=== PATIENT | female | born 1950 | race Caucasian/White ===

== ENCOUNTER 2020-05-28 12:35 | Outpatient (CLI) | payer MEDICARE, SELFPAY ==
--- NOTE | ~2020-05-28 | DEXA_ITS ---
BMD(1) Young-Adult(2) Age-Matched(3) Region (g/cm2) T-score Z-score WHO Classification L1 1.187 0.4 1.7 Normal L2 1.207 0.0 1.3 Normal L3 1.184 -0.3 1.1 Normal L4 1.239 0.2 1.5 Normal L1-L4 1.206 0.1 1.5 Normal Trend: L1-L4 Change vs Change vs Measured Age BMD(1) Baseline Previous Date (years) (g/cm2) (%) (%) 05/28/2020 [age] 1.206 baseline - 1 - Statistically 68% of repeat scans fall within 1SD (+- 0.010 g/cm2 for AP Spine L1-L4) 2 - [place] (Combined NHANES (ages 20-30) / [employer] (ages 20-40)) AP Spine Reference Population (v112) 3 - Matched for Age, Weight (females 25-100 kg), Ethnic 11 - World Health Organization - Definition of Osteoporosis and Osteopenia for Women: Normal = T-score at or above -1.0 SD; Osteopenia = T-score between -1.0 and -2.5 SD; Osteoporosis = T-score at or below -2.5 SD; (WHO definitions only apply when a young healthy Women reference database is used to determine T-scores.) Printed: 05/28/2020 1:09:30 PM (13.60)76:3.00:50.00:12.0 0.00:9.24 0.60x1.05 25.1:%Fat=44.4% 0.00:0.00 0.00:0.00 Filename: [email or web address] Scan Mode: Standard;OneScan 37.0 [employer] [id number] BMD(1) Young-Adult(2,7) Age-Matched(3) Region (g/cm2) T-score Z-score WHO Classification Neck Left 0.986 -0.4 1.1 Normal Right 0.922 -0.8 0.7 Normal Mean 0.954 -0.6 0.9 Normal Difference 0.064 0.5 0.5 - Total Left 1.094 0.7 1.9 Normal Right 1.091 0.7 1.9 Normal Mean 1.092 0.7 1.9 Normal Difference 0.004 0.0 0.0 - Hip Mikana Length Comparison (mm) (Right = 95.6 mm) (Mean = 103.4 mm) (Left = 100.3 mm) Trend: Total Mean Change vs Change vs Measured Age BMD(1) Baseline Previous Date (years) (g/cm2) (%) (%) 05/28/2020 69.5 1.092 baseline - 1 - Statistically 68% of repeat scans fall within 1SD (+- 0.010 g/cm2 for DualFemur Total) 2 - [place] (Combined NHANES (ages 20-30) / [employer] (ages 20-40)) Femur Reference Population (v112) 3 - Matched for Age, Weight (females 25-100 kg), Ethnic 7 - DualFemur Total T-score difference is 0.0. Asymmetry is None. 11 - World Health Organization - Definition of Osteoporosis and Osteopenia for Women: Normal = T-score at or above -1.0 SD; Osteopenia = T-score between -1.0 and -2.5 SD; Osteoporosis = T-score at or below -2.5 SD; (WHO definitions only apply when a young healthy Women reference database is used to determine T-scores.) Printed: 05/28/2020 1:09:30 PM (13.60); Filename: [email or web address]; Right Femur; 21.1:%Fat=43.7%; Neck Angle (deg)= 63; Scan Mode: Standard 37.0 uGy; Left Femur; 20.9:%Fat=48.7%; Neck Angle (deg)= 67; Scan Mode: Standard 37.0 uGy [employer] [id number] Dear Kraig Sandra, Your patient Courtney Doshi completed a BMD test on 05/28/2020 using the [employer] DXA System (analysis version: 13.60) manufactured by [employer]. The following summarizes the results of our evaluation. PATIENT BIOGRAPHICAL: Name: Courtney Doshi Date: 1950 Height: 62.0 in. Gender: Female Exam Date: 05/28/2020 Weight: 164.0 lbs. Indications: Back Pain, Caffeinated drinks, Fractures:
== END 2020-05-28 12:36 | disposition home or self-care (01) ==
LOC: CHSIMG 12:40
PROVIDERS: PCP Family Medicine; Visit Provider Family Medicine
DX: Z78.0 Asymptomatic menopausal state (principal)
CPT/HCPCS: 77080

== ENCOUNTER 2022-11-30 12:46 | Outpatient (CLI) | payer MEDICARE, OTHER, SELFPAY ==
--- NOTE | ~2022-11-30 | DEXA_ITS ---
Bone Density Report Name: PJ YO Age: 72 Sex: Female Ethnicity: White Date of : 1950 Indication: postmenopausal; screening for osteoporosis; height loss; Referring Provider: Boaz, Kraig Study: Bone densitometry was performed. Exam Date: November 30, 2022 Accession number: [id number] Bone Density: Region BMD T-score Z-score Classification AP Spine(L1-L4) 1.038 -0.1 2.2 Normal Femoral Neck (Left) 0.706 -1.3 0.7 Osteopenia Total Hip (Left) 0.888 -0.4 1.2 Normal Femoral Neck (Right) 0.774 -0.7 1.3 Normal Total Hip (Right) 0.983 0.3 2.0 Normal Femoral Neck Mean 0.740 -1.0 1.0 Normal Total Hip Mean 0.935 -0.1 1.6 Normal World Health Organization criteria for BMD impression classify patients as: Normal (T-score at or above -1.0), Osteopenia (T-score between -1.0 and -2.5), or Osteoporosis (T-score at or below -2.5). 10-year Fracture Risk(1): Major Osteoporotic Fracture 10.0% Hip Fracture 1.5% Reported Risk Factors: [place] (), Neck BMD=0.706, BMI=29.6 (1) FRAX(R) Version 3.08. Fracture probability calculated for an untreated patient. Fracture probability may be lower if the patient has received treatment. Clinical Information Provided by Patient: Has used the following medications: Vitamin D, b12 Patient maximum height was 63 Menopause Age: 59 No regular weight bearing exercise Does not regularly consume dairy products Drinks caffeinated beverages Onset of menses at age 10 Number of children 3 Impression: The patient has low bone mass, based on the Left Femoral Neck T-score. Discussion: BONE DENSITY IS LOW AT ONE OR MORE SKELETAL SITES. This patient's lowest T-score is low at one or more skeletal sites. It meets the World Health Organization's (WHO) criteria for ?low bone mass? (T-score between -1.0 and -2.5). The patient's 10-year risk of fracture as calculated by FRAX is less than the threshold where pharmacological therapy is recommended by the National Osteoporosis Foundation (NOF). However, all treatment decisions require clinical judgment and consideration of individual patient factors, including patient preferences, comorbidities, previous drug use, risk factors not captured in the FRAX model (e.g., frailty, falls, vitamin D deficiency, increased bone turnover, interval significant decline in bone density) and possible under or overestimation of fracture risk by FRAX. The patient should follow a healthful lifestyle (good nutrition with adequate calcium and vitamin D, and appropriate weight-bearing exercise). Follow-Up: Consider repeating this study in 2 to 3 years to reassess this patient's status, or sooner if there is some new clinical indication. Reported by: Dr. Jeremy Smith on 11/30/2022 1:11:00 PM.
== END 2022-11-30 12:47 | disposition home or self-care (01) ==
LOC: CHSIMG 12:48
PROVIDERS: PCP Family Medicine; Visit Provider Family Medicine
DX: Z78.0 Asymptomatic menopausal state (principal); M85.88 Other specified disorders of bone density and structure, other site
CPT/HCPCS: 77080

== ENCOUNTER 2024-04-11 08:34 | Outpatient (CLI) | payer MEDICARE, SELFPAY ==
[2024-04-11 09:00] LABS: Basophils Absolute Auto 0.03 K/mm3 (0.00-0.10); Basophils Percent Auto 0.6 % (0.0-1.0); Eosinophils Absolute Auto 0.18 K/mm3 (0.02-0.50); Eosinophils Percent Auto 3.7 % (1.0-6.0); Hematocrit 34.8 % (35.0-42.0); Hemoglobin 11.6 g/dL (11.7-13.8); Immature Granulocyte Absolute 0.02 K/mm3 (0.00-0.00); Immature Granulocyte Percent A 0.4 % (0.0-0.0); Lymphocytes Absolute Auto 1.14 K/mm3 (1.10-4.50); Lymphocytes Percent Auto 23.5 % (18.0-42.0); Mean Corpuscular HGB Conc 33.3 g/dL (32-36); Mean Corpuscular Hemoglobin 29.2 pg (27.0-31.0); Mean Corpuscular Volume 87.7 fL (78.0-102.0); Monocytes Absolute Auto 0.39 K/mm3 (0.10-0.90); Neutrophils Percent Auto 63.8 % (50.0-70.0); Platelet Count Result 228 K/mm3 (150-420); Red Blood Count 3.97 M/mm3 (4.20-5.40); Red Cell Distribution Width 12.4 % (11.6-14.4); White Blood Count 4.9 K/mm3 (4.8-10.8)
[2024-04-11 09:07] LABS: Hemoglobin A1C 9.7 % (<5.7)
[2024-04-11 09:34] LABS: Alanine Aminotransferase 29 U/L (14-59); Albumin Level 3.6 g/dL (3.4-5.0); Alkaline Phosphatase 63 U/L (46-116); Anion Gap 9 mmol/L (4-12); Aspartate Amino Transferase 74 U/L (15-37); Bilirubin,Total 0.5 mg/dL (0.00-1.00); Blood Urea Nitrogen 20 mg/dL (7-18); Calcium 9.4 mg/dL (8.5-10.1); Carbon Dioxide 24 mmol/L (21-32); Chloride 98 mmol/L (98-108); Cholesterol 225 mg/dL (0-200); Estimated Glomerular Filt Rate > 60; Glucose 258 mg/dL (70-99); HDL Direct 45 mg/dL (40-60); Osmolality Calculated 283 mOsm/kg (285-295); Sodium 131 mmol/L (136-145); Total Protein 6.9 g/dL (6.4-8.2)
[2024-04-11 09:40] LABS: LDL Cholesterol Calculated 72 mg/dL (<130); Triglycerides 540 mg/dL (0-150)
[2024-04-11 10:59] LABS: LDL Cholesterol Direct 104 mg/dL (0-130)
== END 2024-04-11 08:35 | disposition home or self-care (01) ==
LOC: CHSLAB 08:37
PROVIDERS: PCP Family Medicine; Visit Provider Family Medicine
DX: I10 Essential (primary) hypertension (principal); E11.9 Type 2 diabetes mellitus without complications; E78.5 Hyperlipidemia, unspecified
CPT/HCPCS: 36415; 80053; 80061; 83036; 83721; 85025

== ENCOUNTER 2024-09-08 09:11 | Outpatient (CLI) | payer MEDICARE, OTHER, SELFPAY ==
[2024-09-08 09:58] LABS: Hemoglobin A1C 10.5 % (<5.7)
[2024-09-08 10:30] LABS: Alanine Aminotransferase 28 U/L (14-59); Albumin Level 3.4 g/dL (3.4-5.0); Alkaline Phosphatase 114 U/L (46-116); Anion Gap 8 mmol/L (4-12); Aspartate Amino Transferase 19 U/L (15-37); Bilirubin,Total 0.5 mg/dL (0.00-1.00); Blood Urea Nitrogen 22 mg/dL (7-18); Calcium 9.8 mg/dL (8.5-10.1); Carbon Dioxide 29 mmol/L (21-32); Chloride 97 mmol/L (98-108); Cholesterol 206 mg/dL (0-200); Estimated Glomerular Filt Rate > 60; Glucose 283 mg/dL (70-99); HDL Direct 48 mg/dL (40-60); LDL Cholesterol Calculated 63 mg/dL (<130); Osmolality Calculated 291 mOsm/kg (285-295); Potassium 4.8 mmol/L (3.5-5.1); Sodium 134 mmol/L (136-145); Total Protein 6.5 g/dL (6.4-8.2); Triglycerides 473 mg/dL (0-150)
[2024-09-08 10:36] LABS: LDL Cholesterol Direct 85 mg/dL (0-130)
== END 2024-09-08 09:12 | disposition home or self-care (01) ==
PROVIDERS: PCP Family Medicine; Visit Provider Family Medicine
DX: E11.9 Type 2 diabetes mellitus without complications (principal); E78.5 Hyperlipidemia, unspecified
CPT/HCPCS: 36415; 80053; 80061; 83036; 83721

== ENCOUNTER 2025-01-09 07:39 | Outpatient (CLI) | payer MEDICARE, SELFPAY ==
--- OUTSIDE RECORDS SUMMARY | 2025-01-09 07:44 | XMS_ITS | Clinical Summary ---
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 Active Cyanocobalamin (VITAMIN B 12) 500 MCG Tab Take by mouth daily. Active Active Problems Problem Noted Date Diagnosed Date Epidermal inclusion cyst 08/06/2022 Sebaceous cyst 05/08/2022 Family History Relation Status Comments Father Mother Social History Tobacco Use Types Packs/Day Years Used Date Smoking Tobacco: Never Smokeless Tobacco: Never Alcohol Use Standard Drinks/Week Comments Never 0 (1 standard drink = 0.6 oz pur e alcohol) PHQ-2 Answer Date Recorded PHQ-2 Score - If the patient scores above 3, please move on to questions 3-9 0 08/18/2022 Comments No Sex and Gender Information Value Date Recorded Sex Assigned at Not on file Legal Sex Female 10:44 PM CDT Gender Identity Not on file Sexual Orientation Not on file Last Filed Vital Signs Vital Sign Reading Time Taken Comments Blood Pressure 132/64 08/18/2022 10:47 AM UPPER [employer]APER Pulse 77 08/18/2022 10:47 AM UPPER [employer]ER Temperature 35.9 C (96.7 F) 08/18/2022 10:47 AM UPPER SHAPER Respiratory Rate 14 08/18/2022 10:47 AM UPPER [employer]APER Oxygen Saturation 98% 08/18/2022 10:47 AM UPPER SHAPER Inhaled Oxygen Concentration - - Weight 72.6 kg (160 lb) 08/18/2022 10:47 AM UPPER SHAPER Height 160 cm (5' 3 ) 08/18/2022 10:47 AM UPPER SHAPER Body Mass Index 28.34 08/18/2022 10:47 AM UPPER SHAPER Plan of Treatment Health Maintenance Due Date Last Done Comments Colorectal Cancer Screening Colonoscopy (10 Years) 1950 Hepatitis C 1967 DTaP, Tdap and Td Vaccines ( 1 - Tdap) 1968 Zoster Vaccines (1 of 2) 1999 Annual Medicare Wellness Visit 2014 Dexa Scan (General) 2014 Pneumococcal Vaccine: 65+ Years (2 of 2 - PCV) 11/05/2018 11/05/2017 COVID-19 Vaccine (3 - 2023-2 5 season) 2024 12/31/2020, 12/10/2020 RSV Immunization or 60+ Years (1 - 1-dose 75+ series) 2024 Meningococcal B Vaccine Aged Out No l onger eligible based on patient's age to complete this topic Meningococcal Vaccine Aged Out No deepali lesley eligible based on patient's age to complete this topic RSV Immunizations Under 20 Months Aged Out No longer eligible b ased on patient's age to complete this topic Insurance MEDICARE [facility] 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
[2025-01-09 08:34] LABS: Basophils Absolute Auto 0.04 K/mm3 (0.00-0.10); Basophils Percent Auto 0.7 % (0.0-1.0); Eosinophils Absolute Auto 0.21 K/mm3 (0.02-0.50); Eosinophils Percent Auto 3.9 % (1.0-6.0); Hematocrit 35.3 % (35.0-42.0); Hemoglobin 11.5 g/dL (11.7-13.8); Immature Granulocyte Absolute 0.01 K/mm3 (0.00-0.00); Immature Granulocyte Percent A 0.2 % (0.0-0.0); Lymphocytes Absolute Auto 1.34 K/mm3 (1.10-4.50); Lymphocytes Percent Auto 24.7 % (18.0-42.0); Mean Corpuscular HGB Conc 32.6 g/dL (32-36); Mean Corpuscular Hemoglobin 28.3 pg (27.0-31.0); Mean Corpuscular Volume 86.9 fL (78.0-102.0); Mean Platelet Volume 9.5 fl (9.2-11.8); Monocytes Absolute Auto 0.34 K/mm3 (0.10-0.90); Monocytes Percent Auto 6.3 % (2.0-11.0); Neutrophils Absolute Auto 3.48 K/mm3 (1.70-7.20); Neutrophils Percent Auto 64.2 % (50.0-70.0); Platelet Count Result 281 K/mm3 (150-420); Red Blood Count 4.06 M/mm3 (4.20-5.40); Red Cell Distribution Width 12.3 % (11.6-14.4); White Blood Count 5.4 K/mm3 (4.8-10.8)
[2025-01-09 08:38] LABS: Hemoglobin A1C 8.6 % (<5.7)
[2025-01-09 08:56] LABS: Cholesterol 170 mg/dL (0-200); HDL Direct 46 mg/dL (40-60); LDL Cholesterol Calculated 46 mg/dL (<130); Triglycerides 390 mg/dL (0-150)
[2025-01-09 16:22] LABS: Alanine Aminotransferase 28 U/L (14-59); Albumin Level 3.6 g/dL (3.4-5.0); Alkaline Phosphatase 104 U/L (46-116); Anion Gap 14 mmol/L (4-12); Aspartate Amino Transferase 19 U/L (15-37); Bilirubin,Total 0.3 mg/dL (0.00-1.00); Blood Urea Nitrogen 22 mg/dL (7-18); Calcium 9.4 mg/dL (8.5-10.1); Carbon Dioxide 25 mmol/L (21-32); Chloride 100 mmol/L (98-108); Estimated Glomerular Filt Rate 57; Glucose 210 mg/dL (70-99); Osmolality Calculated 297 mOsm/kg (285-295); Potassium 4.2 mmol/L (3.5-5.1); Sodium 139 mmol/L (136-145)
[2025-01-11 01:48] LABS: Vitamin D 25 Hydroxy 38 ng/mL (30-100)
== END 2025-01-09 07:40 | disposition home or self-care (01) ==
LOC: CHSLAB 07:42
PROVIDERS: PCP Family Medicine; Visit Provider Family Medicine
DX: I10 Essential (primary) hypertension (principal); E78.5 Hyperlipidemia, unspecified; E11.9 Type 2 diabetes mellitus without complications; E55.9 Vitamin D deficiency, unspecified
CPT/HCPCS: 36415; 80053; 80061; 82306; 83036; 85025

== ENCOUNTER 2025-02-05 09:17 | Outpatient (CLI) | payer MEDICARE, OTHER, SELFPAY ==
--- NOTE | ~2025-02-05 | DEXA_ITS ---
Bone Density Report Name: PJ YO Age: 74 Sex: Female Ethnicity: White Date of : 1950 Indication: postmenopausal; screening for osteoporosis; cancer; Referring Provider: Boaz*Kraig Osorio Study: Bone densitometry was performed. Exam Date: February 05, 2025 Accession number: [id number] Bone Density: Region BMD T-score Z-score Classification AP Spine(L1-L4) 1.036 -0.1 2.3 Normal Femoral Neck (Left) 0.755 -0.8 1.2 Normal Total Hip (Left) 0.901 -0.3 1.5 Normal Femoral Neck (Right) 0.826 -0.2 1.9 Normal Total Hip (Right) 0.985 0.4 2.1 Normal Femoral Neck Mean 0.791 -0.5 1.6 Normal Total Hip Mean 0.943 0.0 1.8 Normal World Health Organization criteria for BMD impression classify patients as: Normal (T-score at or above -1.0), Osteopenia (T-score between -1.0 and -2.5), or Osteoporosis (T-score at or below -2.5). 10-year Fracture Risk: FRAX not reported because: All T-scores for Spine Total, Hip Total, Femoral Neck at or above -1.0 Previous Exams: Region Exam Age BMD T-score BMD Change BMD Change Date g/cm2 vs Baseline vs Previous AP Spine (L1-L4) 02/05/2025 74 1.036 -0.1 -0.001 (-0.1%) -0.001 (-0.1%) 11/30/2022 72 1.038 -0.1 Total Hip(Left) 02/05/2025 74 0.901 -0.3 0.013 (1.5%)# 0.013 (1.5%)# 11/30/2022 72 0.888 -0.4 Total Hip(Right) 02/05/2025 74 0.985 0.4 0.001 (0.1%)# 0.001 (0.1%)# 11/30/2022 72 0.983 0.3 *Denotes significance at 95% confidence level, LSC for AP Spine = 0.022 g/cm2, LSC for Total Hip = 0.027 g/cm2 # Denotes dissimilar scan types or analysis methods Clinical Information Provided by Patient: Has used the following medications: Vitamin D Has the following medical conditions: Cancer Patient maximum height was 63.0 Menopause Age: 59 No regular weight bearing exercise Does not regularly consume dairy products Drinks caffeinated beverages Onset of menses at age 10 Number of children 3 Impression: The patient has normal bone mass. No significant bone loss was observed. Discussion: BONE DENSITY IS ABOVE THE MINIMUM DESIRABLE LEVEL AT ALL SKELETAL SITES TESTED. This patient?s bone mineral density is above the minimum desirable level (T-score -1.0 or better) at all sites measured. The patient should follow a healthful lifestyle (good nutrition with adequate calcium and vitamin D, and appropriate weight-bearing exercise). Follow-Up: Consider repeating this study in 5 years or sooner if there is some new clinical indication. Reported by: THAI on 02/05/2025 9:41:00 AM. Reviewed, dictated and finalized at location A.
== END 2025-02-05 09:18 | disposition home or self-care (01) ==
PROVIDERS: PCP Family Medicine; Visit Provider Family Medicine
DX: Z78.0 Asymptomatic menopausal state (principal)
CPT/HCPCS: 77080

== ENCOUNTER 2025-05-30 08:46 | Outpatient (CLI) | payer MEDICARE, OTHER, SELFPAY ==
[2025-05-30 09:24] LABS: Hematocrit 33.3 % (35.0-42.0); Hemoglobin 10.9 g/dL (11.7-13.8); Immature Granulocyte Percent A 0.5 % (0.0-0.0); Lymphocytes Absolute Auto 1.15 K/mm3 (1.10-4.50); Mean Corpuscular HGB Conc 32.7 g/dL (32-36); Mean Corpuscular Hemoglobin 28.3 pg (27.0-31.0); Mean Corpuscular Volume 86.5 fL (78.0-102.0); Nucleated Red Blood Cells Absolute Auto 0.00 K/mm3 (0.00-0.00); Nucleated Red Blood Cells Perc 0.0 % (0-0.0); Platelet Count Result 299 K/mm3 (150-420); Red Blood Count 3.85 M/mm3 (4.20-5.40); White Blood Count 5.8 K/mm3 (4.8-10.8)
[2025-05-30 09:37] LABS: Alanine Aminotransferase 21 U/L (6-35); Albumin Level 4.4 g/dL (3.5-5.1); Alkaline Phosphatase 70 U/L (38-126); Anion Gap 12 mmol/L (4-12); Aspartate Amino Transferase 24 U/L (14-36); Bilirubin,Total 0.5 mg/dL (0.2-1.3); Blood Urea Nitrogen 24 mg/dL (7-17); Calcium 10.8 mg/dL (8.4-10.2); Carbon Dioxide 27 mmol/L (22-30); Chloride 95 mmol/L (98-107); Cholesterol 175 mg/dL (0-200); Estimated Glomerular Filt Rate 53; Glucose 139 mg/dL (65-110); HDL Direct 43 mg/dL; Osmolality Calculated 284 mOsm/kg (285-295); Potassium 4.7 mmol/L (3.4-5.0); Sodium 134 mmol/L (137-145); Total Protein 6.9 g/dL (6.3-8.2); Triglycerides 386 mg/dL (<150)
[2025-05-30 09:46] LABS: Hemoglobin A1C 7.0 % (<5.7)
[2025-05-30 11:13] LABS: Iron 81 ug/dL (37-170)
[2025-05-30 11:22] LABS: Percent Iron Saturation 21 % (20-50)
== END 2025-05-30 08:47 | disposition home or self-care (01) ==
LOC: CHSLAB 08:50
PROVIDERS: PCP Family Medicine; Visit Provider Family Medicine
DX: E11.9 Type 2 diabetes mellitus without complications (principal); E78.5 Hyperlipidemia, unspecified; I10 Essential (primary) hypertension; E55.9 Vitamin D deficiency, unspecified; D64.9 Anemia, unspecified
CPT/HCPCS: 36415; 80053; 80061; 82306; 83036; 83540; 83550; 85025

== ENCOUNTER 2025-08-29 06:53 | Outpatient (CLI) | payer MEDICARE, OTHER, SELFPAY ==
[2025-08-29 07:22] LABS: Hemoglobin A1C 7.1 % (<5.7)
[2025-08-29 08:04] LABS: Alanine Aminotransferase 21 U/L (6-35); Albumin Level 4.6 g/dL (3.5-5.1); Alkaline Phosphatase 93 U/L (38-126); Anion Gap 12 mmol/L (4-12); Aspartate Amino Transferase 21 U/L (14-36); Bilirubin,Total 0.4 mg/dL (0.2-1.3); Blood Urea Nitrogen 38 mg/dL (7-17); Calcium 11.4 mg/dL (8.4-10.2); Carbon Dioxide 25 mmol/L (22-30); Chloride 102 mmol/L (98-107); Cholesterol 189 mg/dL (0-200); Estimated Glomerular Filt Rate 56; Glucose 157 mg/dL (65-110); HDL Direct 55 mg/dL; Osmolality Calculated 300 mOsm/kg (285-295); Potassium 4.9 mmol/L (3.4-5.0); Sodium 139 mmol/L (137-145); Total Protein 7.2 g/dL (6.3-8.2); Triglycerides 327 mg/dL (<150)
== END 2025-08-29 06:54 | disposition home or self-care (01) ==
PROVIDERS: PCP Family Medicine; Visit Provider Family Medicine
DX: E55.9 Vitamin D deficiency, unspecified (principal); E78.5 Hyperlipidemia, unspecified; E11.9 Type 2 diabetes mellitus without complications
CPT/HCPCS: 36415; 80053; 80061; 82306; 83036